=== PATIENT | female | born 1945 | race Two or more races ===

== ENCOUNTER 2018-09-04 09:33 | Inpatient (IN) | payer MEDICARE, OTHER ==
[~2018-09-04] VITALS: Ht 152.4 cm; Wt 55.3 kg
[2018-09-04] MEDS ORDERED: MAG HYDROX/AL HYDROX/SIMETH 30 ML UDC PO PRN (17:00)
[2018-09-04] MEDS ORDERED: MAGNESIUM HYDROXIDE 30 ML UDC PO PRN (17:00)
[2018-09-04] MEDS ORDERED: FOLI1TAB16 PO (17:17)
[2018-09-04] MEDS ORDERED: HALO10TA13 PO (17:17)
[2018-09-04] MEDS ORDERED: MULT-1160 PO (17:17)
[2018-09-04] MEDS ORDERED: HALO5TAB PO (17:17)
[2018-09-04] MEDS ORDERED: OLAN20TA6 PO (17:17)
[2018-09-04] MEDS ORDERED: NIAC500T7 PO (17:17)
[2018-09-04] MEDS ORDERED: PANT40TA4 PO (17:17)
[2018-09-04] MEDS ORDERED: CA/D1TAB7 PO (17:17)
--- NOTE | 2018-09-04 17:58 | NUR ---
GPS RN ADMITTING NOTE: PATIENT 73 Y/O FEMALE DIRECT ADMIT FROM [facility]. PLACED ON 5150 FOR DTO PER HOLD PT COMING FROM BOARD AND CARE STAFF WITNESS PT THROW HER DINNER PLATE DIRECTLY AT ANOTHER.UPON FACE TO FACE ASSESSMENT PT A/O X2 CONFUSED LOOKING FOR HER FRIEND COY . PT DELUSIONAL, ANXIOUS . DR MONTANEZ NOTIFIED WITH STANDING ORDER PLACED AND CARED OUT. PT SKIN INTACT WITH RIGHT HAND DISCOLORATION ,PICTURE PLACED IN THE CHART. ALL BELONGINGS AND CONTRABAND TAKEN FROM PT , WILL CONTINUE MONITORING FOR SAFETY AND BEHAVIOR Q 15 MIN.
[2018-09-04 18:17] VITALS: BP 130/83
[2018-09-04 20:29] VITALS: BP 119/69
[2018-09-04] MEDS ORDERED: VALS80TA2 PO (22:27)
[2018-09-04] MEDS ORDERED: FURO20TA4 PO (22:27)
[2018-09-05 07:16] LABS: ALANINE AMINOTRANSFERASE 20 U/L (12-78); ALBUMIN 4.1 g/dL (3.4-5.0); ALKALINE PHOSPHATASE 93 U/L (46-116); ASPARTATE AMINOTRANSFERASE 25 U/L (15-37); BILIRUBIN,TOTAL 0.5 mg/dL (0.2-1.0); CALCIUM, SERUM 9.5 mg/dL (8.5-10.1); CARBON DIOXIDE 29 mmol/L (21-32); CHLORIDE 99 mmol/L (98-107); CREATININE 0.8 mg/dL (0.6-1.3); GLUCOSE 87 mg/dL (74-106); POTASSIUM 3.9 mmol/L (3.5-5.1); SODIUM SERUM 137 mmol/L (136-145); TOTAL PROTEIN, SERUM 7.5 g/dL (6.4-8.2); UREA NITROGEN, BLOOD 15 mg/dL (7-18)
[2018-09-05 07:19] LABS: CHOLESTEROL 219 mg/dL (<200); HDL CHOLESTEROL 95 mg/dL (40-60); LDL 105 mg/dL (0-99); TRIGLYCERIDES 86 mg/dL (30-150)
[2018-09-05 08:00] VITALS: BP 140/55
--- NOTE | 2018-09-05 08:30 | NUR ---
SW received a call from Jazz Lane, protective services case worker with [facility] [phone] who informed SW that pt currently lives at [place] [address] . Jazz informed SW that pt has been displaying symptoms of alfonso for about 2-3 weeks and has been a danger to other residents in her [facility] and [facility]. Jazz informed SW that she is available to assist with discharge planning back to [facility] and also informed SW that pt has a trustee that is her aunt who lives in [place] but she is elderly and has no contact with pt, she stated that she only visits pt about once a year. Other than her aunt pt has not living relatives. Jazz also stated that pt has a history of alcohol dependence but has been sober for a couple weeks.
[2018-09-05] MEDS: MULTIVIT W/MINERALS 1 TAB TABLET PO SCH (08:47)
[2018-09-05] MEDS: FUROSEMIDE 20 MG TABLET PO SCH (08:47)
[2018-09-05] MEDS: VALSARTAN 80 MG TABLET PO SCH (08:48)
[2018-09-05] MEDS: FOLIC ACID 1 MG TABLET PO SCH (08:48)
[2018-09-05] MEDS: CALCIUM CITRATE(CITRACAL) /VITAMIN D 1 TAB TABLET PO SCH (08:48)
[2018-09-05] MEDS: PANTOPRAZOLE 40 MG TABLET.DR PO SCH (08:48)
--- NOTE | 2018-09-05 09:00 | NUR ---
SW received a call from Tami, solaris administrator at [facility] and [facility] [phone] who stated that she would like to assess pt once stable before being discharged back to see if she is an appropriate fit for the board and care.
--- NOTE | 2018-09-05 13:52 | NUR ---
INITIAL DISCHARGE NOTE: Patient wishes to return back to [facility] and care [address] [place] [id number] . SW was contacted by Helena, firewall administrator [phone] who stated she would need to evaluate pt when stable before she is able to return to the board and care. KHADAR will help form a safe and proper discharge on collaboration with .
[2018-09-05] MEDS: HALOPERIDOL 5 MG TABLET PO SCH (15:11)
[2018-09-05] MEDS: DIVALPROEX SODIUM 500 MG TABLET.DR PO SCH ×2 (15:11→20:35)
[2018-09-05 16:00] VITALS: BP 119/66
--- NOTE | 2018-09-05 16:01 | NUR ---
Group Note: Pt was asked to join the group therapy session but the pt stated that she wanted to remain in her room. Pt is withdrawn and isolative.
[2018-09-05 20:00] VITALS: BP 154/69
[2018-09-05] MEDS: clonazePAM 0.5 MG TABLET PO PRN (20:35)
--- NOTE | 2018-09-05 20:41 | NUR ---
PATIENT C/O ANXIETY, FIDGETY WHILE IN BED, KLONOPIN 0.5 MG TAB PO GIVEN.
[2018-09-06] MEDS: PANTOPRAZOLE 40 MG TABLET.DR PO SCH (07:30)
[2018-09-06 08:00] VITALS: BP 135/80
[2018-09-06] MEDS: CALCIUM CITRATE(CITRACAL) /VITAMIN D 1 TAB TABLET PO SCH (09:24)
[2018-09-06] MEDS: FOLIC ACID 1 MG TABLET PO SCH (09:24)
[2018-09-06] MEDS: MULTIVIT W/MINERALS 1 TAB TABLET PO SCH (09:24)
[2018-09-06] MEDS: HALOPERIDOL 5 MG TABLET PO SCH ×2 (09:24→17:30)
[2018-09-06] MEDS: VALSARTAN 80 MG TABLET PO SCH (09:24)
[2018-09-06] MEDS: DIVALPROEX SODIUM 500 MG TABLET.DR PO SCH ×2 (09:25→20:47)
[2018-09-06] MEDS: FUROSEMIDE 20 MG TABLET PO SCH (09:25)
[2018-09-06 16:00] VITALS: BP 108/62
--- NOTE | 2018-09-06 19:00 | NUR ---
Arrived and recieved patient in bedroom resting. Patient is alert and oriented x2. Patient is confused at times, demanding and anxious. Patient is medication compliant. Redirected and reoriented patient as needed. Q15 minute safety and behavior checks as needed. Patient is in bedroom resting with no distress noted at this time. Will continue with plan of care.
[2018-09-06 20:00] VITALS: BP 99/55
[2018-09-07 08:00] VITALS: BP 100/72
[2018-09-07] MEDS: CALCIUM CITRATE(CITRACAL) /VITAMIN D 1 TAB TABLET PO SCH ×2 (09:00→10:04)
[2018-09-07] MEDS: VALSARTAN 80 MG TABLET PO SCH (09:00)
[2018-09-07] MEDS: FOLIC ACID 1 MG TABLET PO SCH (10:04)
[2018-09-07] MEDS: HALOPERIDOL 5 MG TABLET PO SCH ×2 (10:04→17:21)
[2018-09-07] MEDS: DIVALPROEX SODIUM 500 MG TABLET.DR PO SCH ×2 (10:04→21:10)
[2018-09-07] MEDS: PANTOPRAZOLE 40 MG TABLET.DR PO SCH (10:04)
[2018-09-07] MEDS: MULTIVIT W/MINERALS 1 TAB TABLET PO SCH (10:04)
[2018-09-07] MEDS: FUROSEMIDE 20 MG TABLET PO SCH (10:05)
--- NOTE | 2018-09-07 13:20 | NUR ---
truman griggs associate professor plant pathology in to see pt.
[2018-09-07 16:00] VITALS: BP 100/70
--- NOTE | 2018-09-07 18:40 | NUR ---
no change in status.
[2018-09-07 20:18] VITALS: BP 134/62
[2018-09-07] MEDS: clonazePAM 0.5 MG TABLET PO PRN (21:10)
[2018-09-08 08:00] VITALS: BP 125/66
[2018-09-08] MEDS: CALCIUM CITRATE(CITRACAL) /VITAMIN D 1 TAB TABLET PO SCH (09:22)
[2018-09-08] MEDS: MULTIVIT W/MINERALS 1 TAB TABLET PO SCH (09:22)
[2018-09-08] MEDS: PANTOPRAZOLE 40 MG TABLET.DR PO SCH (09:23)
[2018-09-08] MEDS: HALOPERIDOL 5 MG TABLET PO SCH ×2 (09:23→16:57)
[2018-09-08] MEDS: DIVALPROEX SODIUM 500 MG TABLET.DR PO SCH ×2 (09:23→21:55)
[2018-09-08] MEDS: FOLIC ACID 1 MG TABLET PO SCH (09:23)
[2018-09-08] MEDS: VALSARTAN 80 MG TABLET PO SCH (09:26)
[2018-09-08] MEDS: FUROSEMIDE 20 MG TABLET PO SCH (09:28)
[2018-09-08 16:00] VITALS: BP 146/74
--- NOTE | 2018-09-08 18:23 | NUR ---
RN NOTES PATIENT STAYED MOSTLY IN HER BEDROOM. NON COMPLIANT WITH HER MEDICATIONS. RESTING COMFORTABLY AND QUIET FOR NOW.
[2018-09-08 20:08] VITALS: BP 114/62
[2018-09-09 08:00] VITALS: BP 130/72
[2018-09-09] MEDS: PANTOPRAZOLE 40 MG TABLET.DR PO SCH (08:18)
[2018-09-09] MEDS: DIVALPROEX SODIUM 500 MG TABLET.DR PO SCH ×2 (08:21→21:17)
[2018-09-09] MEDS: VALSARTAN 80 MG TABLET PO SCH (08:21)
[2018-09-09] MEDS: FUROSEMIDE 20 MG TABLET PO SCH (08:21)
[2018-09-09] MEDS: FOLIC ACID 1 MG TABLET PO SCH (08:21)
[2018-09-09] MEDS: HALOPERIDOL 5 MG TABLET PO SCH ×2 (08:21→17:01)
[2018-09-09] MEDS: MULTIVIT W/MINERALS 1 TAB TABLET PO SCH (08:21)
[2018-09-09] MEDS: CALCIUM CITRATE(CITRACAL) /VITAMIN D 1 TAB TABLET PO SCH (08:23)
--- NOTE | 2018-09-09 14:43 | NUR ---
Group Note: Pt was asked to join the group therapy session but the pt stated that she wanted to remain in her room. Pt is withdrawn and isolative. Pt appeared to be paranoid and delusional when making statements about people cutting her head off.
[2018-09-09 16:00] VITALS: BP 146/86
[2018-09-09 19:58] VITALS: BP 142/73
[2018-09-10 08:00] VITALS: BP 107/75
[2018-09-10] MEDS: HALOPERIDOL 5 MG TABLET PO SCH ×2 (08:48→16:51)
[2018-09-10] MEDS: CALCIUM CITRATE(CITRACAL) /VITAMIN D 1 TAB TABLET PO SCH (08:49)
[2018-09-10] MEDS: VALSARTAN 80 MG TABLET PO SCH (08:50)
[2018-09-10] MEDS: PANTOPRAZOLE 40 MG TABLET.DR PO SCH (08:50)
[2018-09-10] MEDS: MULTIVIT W/MINERALS 1 TAB TABLET PO SCH (08:50)
[2018-09-10] MEDS: FUROSEMIDE 20 MG TABLET PO SCH (08:50)
[2018-09-10] MEDS: FOLIC ACID 1 MG TABLET PO SCH (08:51)
[2018-09-10] MEDS: DIVALPROEX SODIUM 500 MG TABLET.DR PO SCH ×2 (08:51→21:19)
--- NOTE | 2018-09-10 15:03 | NUR ---
GROUP NOTE: SW prompted pt to join group therapy but pt refused stating, "I'm cold I can't even function, I will ." SW encouraged pt but pt did not want to get up from bed.
--- NOTE | 2018-09-10 15:06 | NUR ---
KHADAR contacted Tami, credit administrator at [address] [address] and left a voicemail informing her pt will be discharging on Sunday09/16/18. KHADAR requested call back to plan for evaluation, discharge, and transportation.
--- NOTE | 2018-09-10 15:07 | NUR ---
KHADAR contacted Jazz Lane, assistant case manager with [facility] [phone] and left a voicemail informing her pt will be discharged on Sunday09/16/18. KHADAR requested a callback to plan for discharge back to [facility] and [facility].
[2018-09-10 16:00] VITALS: BP 120/77
[2018-09-10 19:54] VITALS: BP 108/60
[2018-09-11 08:00] VITALS: BP 138/72
[2018-09-11] MEDS: PANTOPRAZOLE 40 MG TABLET.DR PO SCH (08:37)
[2018-09-11] MEDS: DIVALPROEX SODIUM 500 MG TABLET.DR PO SCH ×2 (08:48→20:49)
[2018-09-11] MEDS: VALSARTAN 80 MG TABLET PO SCH (08:48)
[2018-09-11] MEDS: HALOPERIDOL 5 MG TABLET PO SCH ×2 (08:48→16:37)
[2018-09-11] MEDS: MULTIVIT W/MINERALS 1 TAB TABLET PO SCH (08:48)
[2018-09-11] MEDS: FUROSEMIDE 20 MG TABLET PO SCH (08:48)
[2018-09-11] MEDS: FOLIC ACID 1 MG TABLET PO SCH (08:48)
[2018-09-11] MEDS: CALCIUM CITRATE(CITRACAL) /VITAMIN D 1 TAB TABLET PO SCH (08:51)
--- NOTE | 2018-09-11 09:19 | NUR ---
KHADAR contacted Tami, client administrator at [place] [address] to coordinate evaluation on Sunday09/13/18 between 8am and 3:00pm.
[2018-09-11 16:00] VITALS: BP 116/69
[2018-09-11 20:04] VITALS: BP 97/62
[2018-09-12 08:00] VITALS: BP 100/77
[2018-09-12] MEDS: VALSARTAN 80 MG TABLET PO SCH (08:39)
[2018-09-12] MEDS: HALOPERIDOL 5 MG TABLET PO SCH ×2 (08:39→16:27)
[2018-09-12] MEDS: PANTOPRAZOLE 40 MG TABLET.DR PO SCH (08:39)
[2018-09-12] MEDS: FUROSEMIDE 20 MG TABLET PO SCH (08:39)
[2018-09-12] MEDS: MULTIVIT W/MINERALS 1 TAB TABLET PO SCH (08:39)
[2018-09-12] MEDS: FOLIC ACID 1 MG TABLET PO SCH (08:39)
[2018-09-12] MEDS: DIVALPROEX SODIUM 500 MG TABLET.DR PO SCH ×2 (08:40→20:32)
[2018-09-12] MEDS: CALCIUM CITRATE(CITRACAL) /VITAMIN D 1 TAB TABLET PO SCH (08:41)
--- NOTE | 2018-09-12 15:45 | NUR ---
Group Note: SW prompted pt to join group therapy session but the pt stated that she wanted to remain in her room. Pt is withdrawn and isolative.
[2018-09-12 16:00] VITALS: BP 134/84
[2018-09-12 20:00] VITALS: BP 142/75
[2018-09-12] MEDS: clonazePAM 0.5 MG TABLET PO PRN (20:33)
[2018-09-13 08:00] VITALS: BP 115/64
[2018-09-13] MEDS: DIVALPROEX SODIUM 500 MG TABLET.DR PO SCH ×2 (08:35→20:25)
[2018-09-13] MEDS: CALCIUM CITRATE(CITRACAL) /VITAMIN D 1 TAB TABLET PO SCH (08:35)
[2018-09-13] MEDS: VALSARTAN 80 MG TABLET PO SCH (08:35)
[2018-09-13] MEDS: HALOPERIDOL 5 MG TABLET PO SCH ×2 (08:36→16:46)
[2018-09-13] MEDS: FUROSEMIDE 20 MG TABLET PO SCH (08:36)
[2018-09-13] MEDS: PANTOPRAZOLE 40 MG TABLET.DR PO SCH (08:36)
[2018-09-13] MEDS: FOLIC ACID 1 MG TABLET PO SCH (08:36)
[2018-09-13] MEDS: MULTIVIT W/MINERALS 1 TAB TABLET PO SCH (08:36)
[2018-09-13 09:56] VITALS: BP 115/66
--- NOTE | 2018-09-13 10:16 | NUR ---
KHADAR received a voicemail from Tami, computer systems security administrator at [address] [address] stating she will be coming on this present day at 2:00pm to assess pt for discharge on Sunday.
--- NOTE | 2018-09-13 14:00 | NUR ---
KHADAR contacted Jazz Lane, social work case manager with [facility] [phone] to arrange transportation for pts discharge on Sunday09/16/18. Jazz stated that she was unable to pick pt up on Sunday and if it was possible to arrange discharge for Sunday09/17/18. KHADAR stated that it was okay and would arrange discharge for Sunday09/17/18 at 10:00am KHADAR will also fax prescription to [facility] Address: [address], [place] [address] .
--- NOTE | 2018-09-13 14:03 | NUR ---
Tami, contracts administrator at [facility] and [address] [address] came on this present day to assess pt. Tami stated that pt is welcomed back to the [facility] and [facility] and was impressed with pts presentation stating that pt was a different person.
[2018-09-13 16:00] VITALS: BP 108/71
--- NOTE | 2018-09-13 16:00 | NUR ---
Group Note: SW prompted pt to join group therapy session but the pt is withdrawn and isolative. Pt stated that she did not want to participate.
[2018-09-13 17:00] VITALS: BP_SYST 108; BP_SYST 115; BP_DIAS 66; BP_DIAS 71
[2018-09-13 20:00] VITALS: BP 122/75
[2018-09-14 08:00] VITALS: BP 130/73
[2018-09-14] MEDS: MULTIVIT W/MINERALS 1 TAB TABLET PO SCH (08:40)
[2018-09-14] MEDS: CALCIUM CITRATE(CITRACAL) /VITAMIN D 1 TAB TABLET PO SCH (08:40)
[2018-09-14] MEDS: FUROSEMIDE 20 MG TABLET PO SCH (08:40)
[2018-09-14] MEDS: HALOPERIDOL 5 MG TABLET PO SCH ×2 (08:40→16:51)
[2018-09-14] MEDS: FOLIC ACID 1 MG TABLET PO SCH (08:40)
[2018-09-14] MEDS: PANTOPRAZOLE 40 MG TABLET.DR PO SCH (08:40)
[2018-09-14] MEDS: DIVALPROEX SODIUM 500 MG TABLET.DR PO SCH ×2 (08:40→20:59)
[2018-09-14] MEDS: VALSARTAN 80 MG TABLET PO SCH (08:41)
[2018-09-14 16:00] VITALS: BP 115/68
[2018-09-14 20:00] VITALS: BP 117/61
[2018-09-15 08:00] VITALS: BP 153/59
[2018-09-15] MEDS: MULTIVIT W/MINERALS 1 TAB TABLET PO SCH (08:32)
[2018-09-15] MEDS: DIVALPROEX SODIUM 500 MG TABLET.DR PO SCH ×2 (08:32→21:25)
[2018-09-15] MEDS: HALOPERIDOL 5 MG TABLET PO SCH ×2 (08:32→17:07)
[2018-09-15] MEDS: FOLIC ACID 1 MG TABLET PO SCH (08:32)
[2018-09-15] MEDS: FUROSEMIDE 20 MG TABLET PO SCH (08:32)
[2018-09-15] MEDS: PANTOPRAZOLE 40 MG TABLET.DR PO SCH (08:32)
[2018-09-15] MEDS: VALSARTAN 80 MG TABLET PO SCH (08:33)
[2018-09-15] MEDS: CALCIUM CITRATE(CITRACAL) /VITAMIN D 1 TAB TABLET PO SCH (08:54)
[2018-09-15 16:00] VITALS: BP 106/62
[2018-09-15 21:46] VITALS: BP 111/65
[2018-09-16] MEDS: PANTOPRAZOLE 40 MG TABLET.DR PO SCH (07:40)
[2018-09-16] MEDS: CALCIUM CITRATE(CITRACAL) /VITAMIN D 1 TAB TABLET PO SCH (08:57)
[2018-09-16] MEDS: DIVALPROEX SODIUM 500 MG TABLET.DR PO SCH ×2 (08:57→21:20)
[2018-09-16] MEDS: HALOPERIDOL 5 MG TABLET PO SCH ×2 (08:58→17:03)
[2018-09-16] MEDS: MULTIVIT W/MINERALS 1 TAB TABLET PO SCH (08:58)
[2018-09-16] MEDS: FUROSEMIDE 20 MG TABLET PO SCH (08:58)
[2018-09-16] MEDS: FOLIC ACID 1 MG TABLET PO SCH (08:58)
[2018-09-16] MEDS: VALSARTAN 80 MG TABLET PO SCH (09:13)
[2018-09-16 09:20] VITALS: BP 150/90
[2018-09-16 16:00] VITALS: BP 100/68
--- NOTE | 2018-09-16 16:29 | NUR ---
PT was invited to group therapy but refused to attend.
[2018-09-16 20:53] VITALS: BP 130/85
[2018-09-16] MEDS ORDERED: BENZTROPINE MESYLATE (1 MG) 1 MG TABLET PO SCH (22:00)
[2018-09-17 08:00] VITALS: BP 138/54
[2018-09-17 08:02] VITALS: BP 138/54
[2018-09-17] MEDS: FOLIC ACID 1 MG TABLET PO SCH (08:02)
[2018-09-17] MEDS: FUROSEMIDE 20 MG TABLET PO SCH (08:02)
[2018-09-17] MEDS: DIVALPROEX SODIUM 500 MG TABLET.DR PO SCH (08:02)
[2018-09-17] MEDS: VALSARTAN 80 MG TABLET PO SCH (08:02)
[2018-09-17] MEDS: CALCIUM CITRATE(CITRACAL) /VITAMIN D 1 TAB TABLET PO SCH (08:02)
[2018-09-17] MEDS: PANTOPRAZOLE 40 MG TABLET.DR PO SCH (08:02)
[2018-09-17] MEDS: HALOPERIDOL 5 MG TABLET PO SCH (08:02)
[2018-09-17] MEDS: MULTIVIT W/MINERALS 1 TAB TABLET PO SCH (08:03)
--- NOTE | 2018-09-17 10:20 | NUR ---
NURSING DISCHARGE NOTE: PT WAS DISCHARGED TODAY AT 1020 VIA PRIVATE VEHICLE AND PICKED UP BY LAURENCE JEFFERSON WOODWORK SALVAGE INSPECTOR WITH [facility] TO [facility] LOCATED AT [address] [place] [address], [id number] . PT LEFT THE UNIT AMBULATORY ESCORTED BY 1 JV AND LAURENCE TO PRIVATE VEHICLE. PT IS A&OX2-3, CALM, COOPERATIVE, PLEASANT, MED COMPLIANT, DENIES SI/HI AT THE TIME OF DISCHARGE. PT WAS COOPERATIVE WITH DISCHARGE PROCESS AND HAS SIGNED DISCHARGE PAPERWORK. PT REFUSED SKIN ASSESSMENT AND PICTURES TO BE TAKEN AT DISCHARGE. ALL BELONGINGS WERE RETURNED TO PT. DISCHARGE ORDER WAS GIVEN BY DR. MONTANEZ WELL PRESCRIPTIONS WERE GIVEN TO PT AND FAXED TO THE PHARMACY. PT WAS MEDICALLY CLEARED BY DR. CHOI AND PRESCRIPTIONS WERE GIVEN TO PT AND FAXED TO THE PHARMACY. VS STABLE. NO S/S OF ANY DISTRESS NOTED. NO C/O PAIN OR ANY DISCOMFORT.
--- NOTE | 2018-09-17 10:59 | NUR ---
DISCHARGE NOTE: Pt will be discharged at 10:20am via private vehicle by Jazz Lane, director of casework with [facility] [phone] [address] . Pts mood was euthymic with congruent affect. Pt denied visual/auditory hallucinations and denied suicidal/homicidal ideation. Pt will continue her psychiatric treatment and address her substance use with [address] [place] [id number] and has a scheduled appointment on Thursday September 20, 2018 at 9:00am. SW faxed clinical information to [facility] at [phone]. Pt will also follow up with Chief Librarian Music Department: Dr. Candace Smith Address: [address] [place] [address] [address], [place] [address] . The multidisciplinary exitcare form was done, printed, signed, and given to the patient.
== END 2018-09-17 10:20 | disposition home or self-care (01) | DRG 885 ==
LOC: GPS 16:34
PROVIDERS: ADMIT Psychiatry & Neurology Psychiatry; ATTEND Hospitalist
DX: F25.0 Schizoaffective disorder, bipolar type (principal); F23 Brief psychotic disorder; F41.9 Anxiety disorder, unspecified; I10 Essential (primary) hypertension; F32.9 Major depressive disorder, single episode, unspecified
CPT/HCPCS: 36415; 80053-TC; 80061-TC; 80164-TC; 87081-TC